=== PATIENT | female | born 1990 | race Caucasian/White ===

== ENCOUNTER → 2017-06-27 | Outpatient (CLI) | payer BC ==
[~2017-06-27] MED LIST: IBU600 MG PO; PERCOCET 325 MG1 TA2 PO; PRENATAL MVI
== END ==
LOC: OLC 16:21
DX: Z39.1 Encounter for care and examination of lactating mother (principal); Z71.89 Other specified counseling

== ENCOUNTER → 2017-06-30 | Outpatient (CLI) | payer BC | LOC: LAC 12:54 | DX: Z39.1 Encounter for care and examination of lactating mother (principal); Z71.89 Other specified counseling ==

== ENCOUNTER 2018-10-23 01:29 | Emergency (ER) | payer BC ==
[~2018-10-23] VITALS: Ht 180.3 cm; Wt 127.3 kg
[2018-10-23 01:47] VITALS: TEMP 98.1
[2018-10-23 02:55] LABS: BASO % 0.4 % (0.0-2.0); EOS % 0.5 % (0-4.0); GRAN # 5.9 (1.4-6.5); GRAN % 76.7 % (42.2-75.2); HEMATOCRIT 37.4 % (37.0-47.0); HEMOGLOBIN 12.5 g/dl (12.5-16.0); LYMPH # 1.2 (1.2-3.4); LYMPH % 15.7 % (20.0-51.0); MEAN CELL VOLUME 87 fl (80.0-100.0); MEAN CORPUSCULAR HEMOGLOBIN 29 pg (27.0-31.0); MEAN CORPUSCULAR HGB CONC 33 g/dl (33.0-37.0); MONO # 0.5 (0.1-0.6); MONO % 6.3 % (1.7-9.3); PLATELET COUNT 229 K/mm3 (130-400); RED BLOOD COUNT 4.28 M/mm3 (4.10-5.30); REDCELL DISTRIBUTION WIDTH-CV 12.7 % (11.5-14.5)
[2018-10-23 03:10] LABS: ALANINE AMINOTRANSFERASE < 6 U/L (9-52); ALKALINE PHOSPHATASE 76 U/L (50-136); ANION GAP 12 mmol/L (7-16); AST,SGOT 22 U/L (15-37); BILIRUBIN,TOTAL 0.2 mg/dL (0.0-1.0); BLOOD UREA NITROGEN 10 mg/dL (7-17); CALCIUM 9.1 mg/dL (8.4-10.2); CARBON DIOXIDE 20 mmol/L (22-30); CHLORIDE 105 mmol/L (98-107); CREATININE, serum 0.47 (0.52-1.25); GLUCOSE 132 mg/dL (74-106); SODIUM 137 mmol/L (137-145); TOTAL PROTEIN 7.2 gm/dL (6.4-8.2)
[2018-10-23 03:24] VITALS: BP 119/51
[2018-10-23 04:06] VITALS: PULSE 77
== END 2018-10-23 04:06 | disposition home or self-care (01) ==
LOC: COL.ER 01:29
PROVIDERS: Emergency Medicine
DX: N93.9 Abnormal uterine and vaginal bleeding, unspecified (principal); E66.9 Obesity, unspecified; Z68.39 Body mass index [BMI] 39.0-39.9, adult; Z87.59 Personal history of other complications of pregnancy, childbirth and the puerperium

== ENCOUNTER 2020-12-28 07:35 | Outpatient (CLI) | payer BC ==
[~2020-12-28] VITALS: Ht 160 cm; Wt 137.3 kg
--- NOTE | 2020-12-28 07:40 | NUR ---
0840- 39.6, G6L1 here with c/o SROM at 0700. Reports normal movement, and occasional ctx. Denies any vaginal bleeding. Ambulatory to LDR6 with spouse. Clean gown on and resting in wedge left position. 0844- EFM x2 and tracing well. VS obtained. Assessment completed. Amni trace by Juan Alberto Judge RN; negative. 0825- SVE by Juan Alberto Ortiz RN /3. Roles on unit and updated on pt. Plan of care reviewed with patient and spouse who verbalize understanding.
[2020-12-28] MEDS ORDERED: PRENATAL TABLET PO (08:04)
[2020-12-28 08:40] VITALS: BP 135/73; PULSE 73; TEMP 97.8
[2020-12-28 09:40] VITALS: PULSE 93
--- NOTE | 2020-12-28 09:40 | NUR ---
Discharge instructions reviewed. Patient verbalizes understanding. Ambulatory off unit with spouse.
== END 2020-12-28 09:40 | disposition home or self-care (01) ==
LOC: LDRO 07:35 → LDR 08:40 → LDRO 09:40
DX: O62.9 Abnormality of forces of labor, unspecified (principal); Z3A.39 39 weeks gestation of pregnancy
CPT/HCPCS: OP

== ENCOUNTER 2020-12-30 06:17 | Inpatient (IN) | payer BC ==
[2020-12-30] VITALS (32 sets, daily range): BP systolic 87–133; BP diastolic 49–83; PULSE 58–115; TEMP 97.3–98.2
[~2020-12-30] VITALS: Ht 180.3 cm; Wt 135.0 kg
[~2020-12-30 06:17] MED LIST changes: +PRENATAL TABLET PO
--- NOTE | 2020-12-30 06:30 | NUR ---
Presents to L&D for scheduled induction of labor. Accompanied by spouse. Ambulatory to unit. Plan of care for day discussed, oriented to room, consents obtained.
--- NOTE | 2020-12-30 07:30 | NUR ---
Pit start @ 2mU/min. Note much difficulty with IV start, 4 attempts total between 2 nurses. Successful start by AYAN Wang.
[2020-12-30 07:57] LABS: BASO % 0.3 % (0.0-2.0); EOS # 0.1 K/mm3 (0.0-0.7); EOS % 0.9 % (0-4.0); GRAN # 5.9 K/mm3 (1.4-6.5); GRAN % 63.5 % (42.2-75.2); HEMATOCRIT 37.2 % (37.0-47.0); HEMOGLOBIN 12.9 g/dl (12.5-16.0); LYMPH # 2.7 K/mm3 (1.2-3.4); LYMPH % 28.5 % (20.0-51.0); MEAN CELL VOLUME 87 fl (80.0-100.0); MEAN CORPUSCULAR HEMOGLOBIN 30 pg (27.0-31.0); MEAN CORPUSCULAR HGB CONC 35 g/dl (33.0-37.0); MEAN PLATELET VOLUME 9.7 fl (7.4-10.4); MONO # 0.6 K/mm3 (0.1-0.6); MONO % 6.3 % (1.7-9.3); PLATELET COUNT 303 K/mm3 (130-400); REDCELL DISTRIBUTION WIDTH-CV 12.2 % (11.5-14.5)
--- NOTE | 2020-12-30 08:15 | NUR ---
Patient reports feeling contractions, describes them as cramping.
--- NOTE | 2020-12-30 09:38 | NUR ---
Requests epidural. LR bolus begun. Anesthesia notified.
--- NOTE | 2020-12-30 11:20 | NUR ---
Repositioned to left lateral, large peanut ball provided.
--- NOTE | 2020-12-30 12:15 | NUR ---
in-house, updated to C/0 station. In to evaluate. Room set up for delivery. Lynn Crawford RN, notified to come for delivery as nursery nurse.
--- NOTE | 2020-12-30 12:26 | NUR ---
1219-First push attempt with instruction by and this tag writer. 12:25:52-Spontaneous vaginal delivery of head by . 12:26:04-Spontaneous vaginal delivery of male infant by . Note delivers through nuchal cord x1, terminal meconium noted. Infant delivers in CANDICE position. to mother's abdomen, dried and stimulated by Jannette, RN, nursery nurse. Delayed cord clamping by for approximately 90 seconds before doubly clamping and cutting cord. Infant moved to maternal chest, warm blankets provided. repairs 2nd degree perineal laceration with 2-[address]1, while awaiting delivery of placenta. 1238-Vaginal delivery of placenta with pushing efforts by patient. Pit bolus begun immediately following. Good fundal involution noted. Daniel ZEEL.
[2020-12-31 00:30] VITALS: BP 120/73; PULSE 81; TEMP 98
[2020-12-31 07:58] VITALS: BP 90/73; PULSE 72; TEMP 97.5
[2020-12-31] MEDS ORDERED: IBU800 M1 PO (08:48)
--- NOTE | 2020-12-31 09:15 | NUR ---
Initial visit; Parents thanked Service Desk Associate for offering congratulations and God's blessings for the of their son. Service Desk Associate thanked family for choosing [facility].
[2020-12-31 11:32] VITALS: BP 108/80; PULSE 85; TEMP 98.3
[2020-12-31 17:00] VITALS: BP 96/69; PULSE 83; TEMP 98
[2020-12-31 20:48] VITALS: BP 129/70; PULSE 80; TEMP 98.6
[2021-01-01 11:54] VITALS: BP 112/68; PULSE 76; TEMP 98.1
== END 2021-01-01 11:45 | disposition home or self-care (01) | DRG 807 ==
LOC: LDR 06:17 → OB 10:46
PROVIDERS: ADMIT Student in an Organized Health Care Education/Training Program
PROC: 10E0XZZ Delivery of Products of Conception, External Approach (ICD-10-PCS; principal; 2020-12-30)
PROC: 0KQM0ZZ Repair Perineum Muscle, Open Approach (ICD-10-PCS; 2020-12-30)
PROC: 3E033VJ Introduction of Other Hormone into Peripheral Vein, Percutaneous Approach (ICD-10-PCS; 2020-12-30)
PROC: 10907ZC Drainage of Amniotic Fluid, Therapeutic from Products of Conception, Via Natural or Artificial Opening (ICD-10-PCS; 2020-12-30)
DX: O99.824 Streptococcus B carrier state complicating childbirth (principal); Z37.0 Single live birth; O99.214 Obesity complicating childbirth; O70.1 Second degree perineal laceration during delivery; Z3A.40 40 weeks gestation of pregnancy
CPT/HCPCS: J2540; J2590; J7120